=== PATIENT | male | born 1980 | race Caucasian/White ===

== ENCOUNTER 2020-06-08 21:30 | Emergency (ER) | payer OTHER, SELFPAY ==
[~2020-06-08] VITALS: Ht 175.3 cm; Wt 68.0 kg
[2020-06-08 21:33] VITALS: Ht 175.3 cm; Wt 68.0 kg
[2020-06-08 22:07] VITALS: BP 128/80
== END 2020-06-08 22:07 | disposition home or self-care (01) ==
LOC: ED 21:30
DX: B34.9 Viral infection, unspecified (principal); Z20.828 Contact with and (suspected) exposure to other viral communicable diseases
CPT/HCPCS: U0003-CS